=== PATIENT | male | born 1985 | race Caucasian/White ===

== ENCOUNTER 2017-07-17 15:55 | Emergency (ER) | payer SELFPAY ==
[2017-07-17] MEDS ORDERED: Albuterol 2.5 MG/3 ML NEB.SOL* (0.083%) INH ONE (16:08)
[2017-07-17] MEDS ORDERED: Ipratropium 0.5MG/2.5ML NEB* 0.5 MG/2.5 ML NEB.SOLN INH ONE (16:08)
[2017-07-17] MEDS ORDERED: predniSONE TAB* 20 MG PO ONE (16:09)
--- NOTE | 2017-07-17 17:22 | UC ---
Asthma HPI - HPI Summary HPI Summary: 2 day history of upper respiratory illness with nasal congestion and post nasal drainage. No fever. Works in a [place] [employer] environment, and has had progressive increase in wheezing over the past 2 days, and is out of his albuterol nebs and MDI. Hx of flares requiring steroids. Hx of allergies, especially cats, has never had allergy shots. Stopped using Dulera after moving apartments --no longer exposed to cats. - History of Current Complaint Chief Complaint: UCAsthma Stated Complaint: COUGH Time Seen by Provider: 07/17/17 17:21 Hx Obtained From: Patient Onset/Duration: Gradual Onset, Lasting Days - 2 Timing: Constant Initial Severity: Moderate Current Severity: Moderate Location/Character: Cough (Productive) Aggravating Factor(s): Exertion, Weather Change, Other - cats Alleviating Factor(s): Inhalers/Nebulizers - improved here with albuterol Associated Signs and Symptoms: Positive: Chest Pain - sore from coughing. - Risk Factors Status Asthmaticus Risk Factors: Negative - Allergy/Home Medications Allergies/Adverse Reactions: Allergies Allergy/AdvReac Type Severity Reaction Status Date / Time No Known Allergies Allergy Verified 07/17/17 16:04 Home Medications: Home Medications Mometasone/Formoter 100/5 MDI* [Dulera 100/5 MDI*] 2 puff INH BID 07/17/17 [ History Confirmed 07/17/17] PMH/Surg Hx/FS Hx/Imm Hx Respiratory History: Asthma - Surgical History Surgical History: Yes Surgery Procedure, Year, and Place: Right Distal Radial/Ulnar Fracture Repair, Undescended Testicle Repair - Family History Known Family History: Positive: Diabetes - grandfather - Social History Occupation: Employed Full-time Lives: With Family Alcohol Use: Weekly Alcohol Amount: 2 times a week Substance Use Type: Marijuana Substance Use Comment - Amount & Last Used: 2 times daily Smoking Status (MU): Never Smoked Tobacco - Immunization History Most Recent Influenza Vaccination: Not the 2016/2017 Season Review of Systems Constitutional: Fatigue Skin: Negative Eyes: Negative ENT: Negative Respiratory: Shortness Of Breath, Cough Cardiovascular: Negative Gastrointestinal: Negative Genitourinary: Negative Motor: Negative Neurovascular: Negative Musculoskeletal: Negative Neurological: Negative Psychological: Negative Is Patient Immunocompromised?: No All Other Systems Reviewed And Are Negative: Yes Physical Exam Triage Information Reviewed: Yes Appearance: Ill-Appearing - congested and mildly unwell, Thin Vital Signs: Initial Vital Signs Temp 98 F 07/17/17 16:00 Pulse 102 07/17/17 16:00 Resp 20 07/17/17 16:00 BP 118/87 07/17/17 16:00 Pulse Ox 95 07/17/17 16:00 Vital Signs Reviewed: Yes Eyes: Positive: Conjunctiva Clear, Conjunctiva Inflamed ENT: Positive: Hearing grossly normal, Pharynx normal, TM dull Neck: Positive: Supple, Nontender, No Lymphadenopathy Respiratory Exam: Other - post albuterol, lungs clear to auscultation. Respiratory: Positive: Lungs clear, Normal breath sounds, No respiratory distress Cardiovascular: Positive: RRR, No Murmur, Pulses Normal Neurological Exam: Normal Psychological Exam: Normal Skin Exam: Normal Asthma Course/Dx - Course Course Of Treatment: oral prednisone. begin Dulera (has rx at home). albuterol nebs and MDI as needed. - Differential Dx/Diagnosis Provider Diagnoses: asthma exacerbation secondary to URI Discharge - Discharge Plan Condition: Stable Disposition: HOME Prescriptions: Albuterol 2.5MG/3ML (0.083%)* [Ventolin 2.5 MG/3 ML NEB.TAI*] 2.5 mg INH Q6H PRN #60 neb.soln PRN Reason: Sob/Wheezing Albuterol HFA INHALER* [Ventolin HFA Inhaler*] 2 puff INH Q4H PRN #1 mdi PRN Reason: Sob/Wheezing Prednisone 2 tab PO DAILY #10 tab Patient Education Materials: Asthma (ED) Referrals: No Primary Care Phys,NOPCP [Primary Care Provider] - Additional Instructions: Begin use of oral prednisone to decrease airway inflammation, but also please resume your Dulera. Use the Dulera for at least 2 weeks, until the point that you no longer feel the need to use albuterol daily. Prescriptions have been sent to your pharmacy.
[2017-07-17 17:25] VITALS: BP 117/71
== END 2017-07-17 17:50 | disposition home or self-care (01) ==
LOC: UCCORT 15:55
DX: J06.9 Acute upper respiratory infection, unspecified (principal); J45.901 Unspecified asthma with (acute) exacerbation
CPT/HCPCS: 99213; G0463; J7512; J7644

== ENCOUNTER 2017-12-04 15:50 | Emergency (ER) | payer BC ==
[2017-12-04 16:44] VITALS: BP 107/69
--- NOTE | 2017-12-04 18:26 | UC ---
Respiratory Complaint HPI - HPI Summary HPI Summary: 32 year old male history of asthma here with URI symptoms for one week and now right ear pain since yesterday. Reports congestion and sore throat for one week along with mild cough. No ear discharge. Reports achy ear pain. - History of Current Complaint Chief Complaint: UCRespiratory Stated Complaint: COLD/EAR COMPLAINT Time Seen by Provider: 12/04/17 17:53 Hx Obtained From: Patient Onset/Duration: Gradual Onset Timing: Constant Severity Initially: Mild Severity Currently: Mild Pain Intensity: 0 Character: Cough: Productive Aggravating Factors: Nothing Alleviating Factors: Nothing Associated Signs And Symptoms: Positive: Fever, Wheezing, URI, Nasal Congestion - Allergies/Home Medications Allergies/Adverse Reactions: Allergies Allergy/AdvReac Type Severity Reaction Status Date / Time No Known Allergies Allergy Verified 12/04/17 16:39 PMH/Surg Hx/FS Hx/Imm Hx Previously Healthy: No - asthma - Surgical History Surgical History: Yes Surgery Procedure, Year, and Place: Right Distal Radial/Ulnar Fracture Repair, Undescended Testicle Repair - Family History Known Family History: Positive: None, Diabetes - grandfather - Social History Alcohol Use: Weekly Alcohol Amount: 2 times a week Substance Use Type: Marijuana Substance Use Comment - Amount & Last Used: 2 times daily Smoking Status (MU): Never Smoked Tobacco - Immunization History Most Recent Influenza Vaccination: Not the Season Review of Systems Constitutional: Negative Skin: Negative Eyes: Negative ENT: Ear Ache, Sinus Congestion Respiratory: Cough Cardiovascular: Negative Gastrointestinal: Negative Genitourinary: Negative Motor: Negative Neurovascular: Negative Musculoskeletal: Negative Neurological: Negative Psychological: Negative Is Patient Immunocompromised?: No All Other Systems Reviewed And Are Negative: Yes Physical Exam Triage Information Reviewed: Yes Appearance: Well-Appearing, No Pain Distress, Well-Nourished Vital Signs: Initial Vital Signs Temp 36.8 C 12/04/17 16:40 Pulse 64 12/04/17 16:40 Resp 18 12/04/17 16:40 BP 107/69 12/04/17 16:40 Pulse Ox 98 12/04/17 16:40 Eye Exam: Normal ENT: Positive: TM bulging - right tm bulging, left tm wnl, Sinus tenderness Neck exam: Normal Respiratory Exam: Normal Cardiovascular Exam: Normal Abdominal Exam: Normal Musculoskeletal Exam: Normal Neurological Exam: Normal Skin Exam: Normal UC Diagnostic Evaluation - Laboratory O2 Sat by Pulse Oximetry: 98 Respiratory Course/Dx - Differential Dx/Diagnosis Differential Diagnosis/HQI/PQRI: Laryngitis, Sinusitis, Other - right OM Provider Diagnoses: Otitis media and sinusitis Discharge - Sign-Out/Discharge Documenting (check all that apply): Discharge/Admit/Transfer - Discharge Plan Condition: Good Disposition: HOME Prescriptions: Amoxicillin/Clavulanate TAB* [Augmentin TAB 875*] 875 mg PO BID 10 Days #20 tab Patient Education Materials: Ear Infection (ED), Pharyngitis (ED) Forms: *Work Release Referrals: Kike Deleon SENIOR REGULATORY AFFAIRS SPECIALIST [Primary Care Provider] - - Billing Disposition and Condition Condition: GOOD Disposition: HOME
== END 2017-12-04 18:22 | disposition home or self-care (01) ==
LOC: UCCORT 15:50
DX: H66.90 Otitis media, unspecified, unspecified ear (principal); J32.9 Chronic sinusitis, unspecified
CPT/HCPCS: 99212; G0463

== ENCOUNTER 2018-01-13 15:53 | Emergency (ER) | payer BC ==
[2018-01-13 16:12] VITALS: BP 122/66
--- NOTE | 2018-01-13 16:50 | ED ---
Respiratory - HPI Summary HPI Summary: 32 yr old male with the complaint of sinus pressure, post nasal drip, cough. Onset 4 days ago. He complains of feeling like his asthma is acting up with the coughing spells. No chest pain. - History of Current Complaint Chief Complaint: UCRespiratory Stated Complaint: CHEST CONGESTION Time Seen by Provider: 01/13/18 16:27 Pain Intensity: 0 - Allergy/Home Medications Allergies/Adverse Reactions: Allergies Allergy/AdvReac Type Severity Reaction Status Date / Time No Known Allergies Allergy Verified 01/13/18 16:09 PMH/Surg Hx/FS Hx/Imm Hx Respiratory History: Reports: Hx Asthma - Surgical History Surgery Procedure, Year, and Place: Right Distal Radial/Ulnar Fracture Repair, Undescended Testicle Repair Infectious Disease History: No Infectious Disease History: Denies: Traveled Outside the [place] in Last 30 Days - Family History Known Family History: Positive: None, Diabetes - grandfather - Social History Alcohol Use: Weekly Alcohol Amount: 2 times a week Substance Use Type: Reports: Marijuana Substance Use Comment - Amount & Last Used: 2 times daily Smoking Status (MU): Never Smoked Tobacco Review of Systems Constitutional: Negative Positive: Nasal Discharge, Other - sinus pressure Positive: Cough All Other Systems Reviewed And Are Negative: Yes Physical Exam Triage Information Reviewed: Yes Vital Signs On Initial Exam: Initial Vitals Temp Pulse Resp BP Pulse Ox 100 F 78 17 122/66 98 01/13/18 16:07 01/13/18 16:07 01/13/18 16:07 01/13/18 16:07 01/13/18 16:07 Vital Signs Reviewed: Yes Appearance: Positive: Well-Appearing, No Pain Distress Skin: Positive: Warm, Skin Color Reflects Adequate Perfusion Head/Face: Positive: Normal Head/Face Inspection Eyes: Positive: EOMI ENT: Positive: Pharynx normal, TMs normal, Sinus tenderness. Negative: Muffled voice, Hoarse voice Neck: Positive: Nontender Respiratory/Lung Sounds: Positive: Clear to Auscultation, Breath Sounds Present. Negative: Wheezes Cardiovascular: Positive: RRR. Negative: Murmur Abdomen Description: Positive: Nontender Musculoskeletal: Positive: Strength/ROM Intact Neurological: Positive: Sensory/Motor Intact, Alert, Oriented to Person Place, Time, CN Intact II-III Psychiatric: Positive: Normal - [place] Coma Scale Best Eye Response: 4 - Spontaneous Best Motor Response: 6 - Obeys Commands Best Verbal Response: 5 - Oriented Coma Scale Total: 15 Diagnostics - Vital Signs Vital Signs Temp Pulse Resp BP Pulse Ox 01/13/18 16:07 100 F 78 17 122/66 98 - Laboratory Lab Statement: Any lab studies that have been ordered have been reviewed, and results considered in the medical decision making process. Disposition - Course Course Of Treatment: 32 yr old male with sinusitis, and asthma history with coughing. Will Rx with prednisone and also augmentin. - Diagnoses Provider Diagnoses: Sinusitis, acute, Acute bronchitis Discharge - Sign-Out/Discharge Documenting (check all that apply): Discharge/Admit/Transfer - Discharge Plan Condition: Good Disposition: HOME Prescriptions: Amoxicillin/Clavulanate TAB* [Augmentin TAB 875*] 875 mg PO BID #20 tab predniSONE TAB* [Deltasone 20 MG TAB*] 40 mg PO DAILY #10 tab Patient Education Materials: Sinusitis (ED), Bronchospasm (ED) Referrals: Kike Deleon SPORTS DOCTOR [Primary Care Provider] - 2 Days - Billing Disposition and Condition Condition: GOOD Disposition: Home
== END 2018-01-13 17:04 | disposition home or self-care (01) ==
LOC: UCCORT 15:53
DX: J01.90 Acute sinusitis, unspecified (principal); J20.9 Acute bronchitis, unspecified
CPT/HCPCS: 99212; G0463

== ENCOUNTER 2019-07-02 15:49 | Emergency (ER) | payer BC, OTHER ==
[2019-07-02 16:04] VITALS: BP 114/76
--- NOTE | 2019-07-02 16:35 | ED ---
Throat Pain/Nasal Congestion - HPI Summary HPI Summary: 33 yr old male with the complaint of sinus pain, post nasal drip, coughing. Onset over a week ago. He has persistent sinus pressure and coughing. No fever. He is a non smoker. His symptoms are moderate. - History of Current Complaint Chief Complaint: UCGeneralIllness Time Seen by Provider: 07/02/19 16:20 - Allergies/Home Medications Allergies/Adverse Reactions: Allergies Allergy/AdvReac Type Severity Reaction Status Date / Time No Known Allergies Allergy Verified 07/02/19 16:00 Home Medications: Home Medications Albuterol HFA INHALER* [Ventolin HFA Inhaler*] 2 puff INH Q4H PRN 07/02/19 [ History Confirmed 07/02/19] Ibuprofen TAB* [Advil TAB*] 600 mg PO ONCE 07/02/19 [History Confirmed 07/02/19] PMH/Surg Hx/FS Hx/Imm Hx Respiratory History: Reports: Hx Asthma - Surgical History Surgery Procedure, Year, and Place: Right Distal Radial/Ulnar Fracture Repair, Undescended Testicle Repair. R 5th finger Infectious Disease History: No Infectious Disease History: Denies: Traveled Outside the [place] in Last 30 Days - Family History Known Family History: Positive: None, Diabetes - grandfather - Social History Alcohol Use: Occasionally Alcohol Amount: 2 times a week Substance Use Type: Reports: Marijuana Substance Use Comment - Amount & Last Used: occasionally Smoking Status (MU): Never Smoked Tobacco Review of Systems Positive: Nasal Discharge Positive: Cough All Other Systems Reviewed And Are Negative: Yes Physical Exam Triage Information Reviewed: Yes Vital Signs On Initial Exam: Initial Vitals Temp Pulse Resp BP Pulse Ox 97.9 F 68 20 114/76 98 07/02/19 16:01 07/02/19 16:01 07/02/19 16:01 07/02/19 16:01 07/02/19 16:01 Vital Signs Reviewed: Yes Appearance: Positive: Well-Appearing, No Pain Distress Skin: Positive: Warm, Skin Color Reflects Adequate Perfusion Head/Face: Positive: Normal Head/Face Inspection Eyes: Positive: EOMI ENT: Positive: Pharynx normal, Nasal congestion, Nasal drainage, TMs normal, Sinus tenderness Neck: Positive: Nontender Respiratory/Lung Sounds: Positive: Clear to Auscultation, Breath Sounds Present Cardiovascular: Positive: RRR. Negative: Murmur Abdomen Description: Negative: Distended Musculoskeletal: Positive: Strength/ROM Intact Neurological: Positive: Sensory/Motor Intact, Alert, Oriented to Person Place, Time, CN Intact II-III, Speech Normal Diagnostics - Vital Signs Vital Signs Temp Pulse Resp BP Pulse Ox 07/02/19 16:01 97.9 F 68 20 114/76 98 - Laboratory Lab Statement: Any lab studies that have been ordered have been reviewed, and results considered in the medical decision making process. EENT Course/Dx - Course Course Of Treatment: 33 yr old with sinusitis. Rx with Augmentin. - Diagnoses Provider Diagnoses: Sinusitis Discharge ED - Sign-Out/Discharge Documenting (check all that apply): Patient Departure All imaging exams completed and their final reports reviewed: No Studies - Discharge Plan Condition: Good Disposition: HOME Prescriptions: Amoxicillin/Clavulanate TAB* [Augmentin TAB 875*] 875 mg PO BID #20 tab Patient Education Materials: Sinusitis (ED) Referrals: No Primary Care Phys,NOPCP [Primary Care Provider] - [facility] [place] [facility] [Outside] - Billing Disposition and Condition Condition: GOOD Disposition: Home
== END 2019-07-02 16:35 | disposition home or self-care (01) ==
LOC: UCCORT 15:49
DX: J32.9 Chronic sinusitis, unspecified (principal); J45.909 Unspecified asthma, uncomplicated; Z79.899 Other long term (current) drug therapy
CPT/HCPCS: 99212; G0463

== ENCOUNTER 2019-10-13 16:29 | Emergency (ER) | payer SELFPAY ==
[2019-10-13 17:10] VITALS: BP 117/74
[2019-10-13 17:44] LABS: Influenza A Molecular Negative (Negative); Influenza B Molecular Negative (Negative)
--- NOTE | 2019-10-13 17:51 | UC ---
FLU HPI - HPI Summary HPI Summary: 34 y/o male presents to the urgent care c/o Pt's housemates have the flu, including his 6month old. Pt denies any symptoms, but is seeking Tamiflu. - History of Current Complaint Chief Complaint: UCGeneralIllness Stated Complaint: POSSIBLE FLU (EXPOSED) Time Seen by Provider: 10/13/19 17:42 Hx Obtained From: Patient Pain Intensity: 0 - Allergy/Home Medications Allergies/Adverse Reactions: Allergies Allergy/AdvReac Type Severity Reaction Status Date / Time No Known Allergies Allergy Verified 10/13/19 17:06 Home Medications: Home Medications Oseltamivir CAP* [Tamiflu CAP*] 75 mg PO DAILY #10 cap 10/13/19 [Rx] PMH/Surg Hx/FS Hx/Imm Hx - Surgical History Surgical History: Yes Surgery Procedure, Year, and Place: Right Distal Radial/Ulnar Fracture Repair, Undescended Testicle Repair. R 5th finger - Family History Known Family History: Positive: None, Diabetes - grandfather - Social History Alcohol Use: Occasionally Alcohol Amount: 2 times a week Substance Use Type: Marijuana Substance Use Comment - Amount & Last Used: weekly Smoking Status (MU): Never Smoked Tobacco - Immunization History Most Recent Influenza Vaccination: Not the 2017/2017 Season Physical Exam - Summary Physical Exam Summary: VITAL SIGNS: Reviewed. GENERAL: Patient is a well developed and nourished male who is sitting comfortably in the examining table. Patient is not in any acute respiratory distress. HEAD AND FACE: No signs of trauma. No ecchymosis, hematomas or skull depressions. No sinus tenderness. EYES: PERRLA, EOMI x 2, No injected conjunctiva, no nystagmus. No photophobia. EARS: Hearing grossly intact. Ear canals and tympanic membranes are within normal limits. MOUTH: Positive pharynx with mild erythema, no exudates, No B/L tonsillar enlargement , no exudate. Uvula in midline. edematous nasal mucosa w/ clear nasal discharge, clear PND NECK: Supple, trachea is midline, Positive anterior cervical lymphadenopathy, no JVD, no carotid bruit, no c-spine tenderness, neck with full ROM. No meningeal signs, no Kernig's or brudzinskis signs. CHEST: Symmetric, no tenderness at palpation LUNGS: Clear to auscultation bilaterally. No wheezing or crackles. CVS: Regular rate and rhythm, S1 and S2 present, no murmurs or gallops appreciated. ABDOMEN: Soft, non-tender. No signs of distention. No rebound no guarding, and no masses palpated. Bowel sounds are normal. EXTREMITIES: FROM in all major joints, no edema, no cyanosis or clubbing. NEURO: Alert and oriented x 3. No acute neurological deficits. Pt follows commands. SKIN: Dry and warm Triage Information Reviewed: Yes Vital Signs: Initial Vital Signs Temp 98.6 F 10/13/19 17:06 Pulse 70 10/13/19 17:06 Resp 15 10/13/19 17:06 BP 117/74 10/13/19 17:06 Pulse Ox 100 10/13/19 17:06 Flu Course/Dx - Course Course Of Treatment: Pt is hemodynamically stable, A&OX3, PE: WNL. Rapid influenza A&B: negative. Pt will be Tx w/ Tamiflu for influenza exposure. Pt advise to take Vitamin C, rst, eat well and avoid strenuous exercise. D/X instructions explained. Pt understood and agreed w/ plan of care. - Differential Dx/Diagnosis Differential Diagnosis/HQI/PQRI: Bronchitis, Influenza, Pneumonia, Upper Respiratory Infection Provider Diagnosis: Exposure to influenza Discharge ED - Sign-Out/Discharge Documenting (check all that apply): Patient Departure - D/C home All imaging exams completed and their final reports reviewed: No Studies - Discharge Plan Condition: Stable Disposition: HOME Prescriptions: Oseltamivir CAP* [Tamiflu CAP*] 75 mg PO DAILY #10 cap Patient Education Materials: Influenza (ED) Referrals: [facility] [place] [facility] [Outside] - 3 Days Additional Instructions: 1- Please take the full course of the antiviral to avoid resistance for prophylactic treatment for influenza exposure. Encourage hand washing and wear a mask to avoid spreading. 2-Take Tylenol PO q6-8hrs prn as instructed after meals to alleviate if you develop any symptoms. Take vitamin C to boost up your immune system. - Billing Disposition and Condition Condition: STABLE Disposition: Home
== END 2019-10-13 18:09 | disposition home or self-care (01) ==
LOC: UCCORT 16:29
DX: Z20.828 Contact with and (suspected) exposure to other viral communicable diseases (principal)
CPT/HCPCS: 99212; G0463